=== PATIENT | female | born 1995 | race Two or more races ===

== ENCOUNTER 2021-10-03 22:14 | Inpatient (IN) | payer SELFPAY ==
[~2021-10-03] VITALS: Ht 154.9 cm; Wt 96.3 kg
[2021-10-03] MEDS ORDERED: LIDOCAINE 1% PF 30 ML VIAL. INJ PRN (22:45)
[2021-10-03] MEDS ORDERED: BUTORPHANOL 2 MG/ML VIAL. IVP PRN ×2 (22:45)
[2021-10-03] MEDS ORDERED: OXYTOCIN 30 UNIT/500 ML PREMIX 500 ML IV PRN ×2 (22:45)
[2021-10-03] MEDS ORDERED: ACETAMINOPHEN 325 MG TABLET. PO PRN (22:45)
[2021-10-03] MEDS ORDERED: IV RINGERS,LACTATED 1000ML 1,000 ML IV SCH (22:45)
[2021-10-03] MEDS ORDERED: IV RINGERS,LACTATED 1000ML 1,000 ML IV PRN (22:45)
[2021-10-03] MEDS ORDERED: TERBUTALINE 1 MG/ML VIAL. SQ PRN (22:45)
[2021-10-03] MEDS ORDERED: 0.9 % SODIUM CHLORIDE 10 ML DISP.SYRIN. IV PRN (22:45)
[2021-10-03 23:06] LABS: BASO % 0 % (0-3); EOS % 0 % (0-3); HEMOGLOBIN 12.1 g/dL (12.0-15.5); LYMPH # 2.5 x10^3/uL (1.0-4.8); LYMPH % 27 % (24-48); MEAN CORPUSCULAR HEMOGLOBIN 28 pg (25-35); MEAN CORPUSCULAR HGB CONC 34 g/dL (31-37); MEAN CORPUSCULAR VOLUME 83 fL (79-100); MONO # 0.8 x10^3/uL (0.0-1.1); MONO % 9 % (0-9); NEUT # 6.1 x10^3/uL (1.8-7.7); NEUT % 64 % (31-73); PLATELET COUNT 190 x10^3/uL (140-400); RED BLOOD COUNT 4.35 x10^6/uL (3.50-5.40); RED CELL DISTRIBUTION WIDTH 16.5 % (11.5-14.5); WHITE BLOOD COUNT 9.5 x10^3/uL (4.0-11.0)
[2021-10-03 23:14] LABS: BILIRUBIN,URINE NEGATIVE (NEG); CLARITY,URINE CLEAR; COLOR,URINE YELLOW; NITRITE,URINE NEGATIVE (NEG); PROTEIN,URINE NEGATIVE (NEG-TRACE)
[2021-10-03 23:20] LABS: BACTERIA,URINE 0 /HPF (0-FEW)
[2021-10-04] VITALS (7 sets, daily range): BP systolic 90–115; BP diastolic 43–72
[2021-10-04] MEDS ORDERED: ONDANSETRON PF 4 MG/2 ML VIAL. ONE (00:33)
[2021-10-04] MEDS ORDERED: ONDANSETRON PF 4 MG/2 ML VIAL. IVP PRN (00:45)
--- NOTE | 2021-10-04 01:17 | PDOC1 ---
GENERATION TECHNICIAN H&P Date of Admission: Date of Admission: Oct 03, 2021 at 22:14 History of Present Illness: EDC: 10/06/21 LMP: 12/30/20 26y @ 39.5 by LMP who present late last night with ctxs. The pt was found to be 4 cm on presentation. The pt had received no care during the . She states that [place], [place] and labs were obtained. PMH: Denies PSH: Denies Meds: None All: NKDA OBHx: TSVD x 1 SH: no tob, no EtOH FH: noncontributory Medications: Meds: Current Medications Medications (Trade) Dose Ordered Sig/Shonda Route PRN Reason Start Time Stop Time Status Last Admin Dose Admin Ringer's Solution 1,000 ml @ 125 mls/hr Q8H IV 10/03/21 22:45 10/04/21 00:41 Oxytocin 500 ml @ 0 mls/hr CONT PRN PRN IV Post delivery bleeding 10/03/21 22:45 10/04/21 00:42 Ondansetron HCl (Zofran) 4 mg PRN Q6HRS PRN IVP NAUSEA/VOMITING 1ST CHOICE 10/04/21 00:45 10/04/21 00:46 Allergies: Coded Allergies: No Known Drug Allergies (Unverified , 10/03/21) Physical Exam: PE: GENERAL: No apparent distress. Alert and oriented. HEENT: Head normocephalic, atraumatic. NECK: Supple LUNGS: Clear to auscultation. HEART: RRR, S1, S2 present, pulses intact ABDOMEN: Soft, positive bowel sounds. EXTREMITIES: No cyanosis or edema. NEUROLOGIC: Normal speech, normal tone PSYCHIATRIC: Normal affect, normal mood. SKIN: No ulceration. FHT: 120s +acels/no decels/mLTV [place]: 2-3 min SVE: 8/C/0 Labs: Laboratory Tests Test 10/03/21 22:45 White Blood Count 9.5 x10^3/uL (4.0-11.0) Red Blood Count 4.35 x10^6/uL (3.50-5.40) Hemoglobin 12.1 g/dL (12.0-15.5) Hematocrit 36.0 % (36.0-47.0) Mean Corpuscular Volume 83 fL (79-100) Mean Corpuscular Hemoglobin 28 pg (25-35) Mean Corpuscular Hemoglobin Concent 34 g/dL (31-37) Red Cell Distribution Width 16.5 % (11.5-14.5) H Platelet Count 190 x10^3/uL (140-400) Neutrophils (%) (Auto) 64 % (31-73) Lymphocytes (%) (Auto) 27 % (24-48) Monocytes (%) (Auto) 9 % (0-9) Eosinophils (%) (Auto) 0 % (0-3) Basophils (%) (Auto) 0 % (0-3) Neutrophils # (Auto) 6.1 x10^3/uL (1.8-7.7) Lymphocytes # (Auto) 2.5 x10^3/uL (1.0-4.8) Monocytes # (Auto) 0.8 x10^3/uL (0.0-1.1) Eosinophils # (Auto) 0.0 x10^3/uL (0.0-0.7) Basophils # (Auto) 0.0 x10^3/uL (0.0-0.2) Urine Collection Type Unknown Urine Color Yellow Urine Clarity Clear Urine pH 6.0 (<5.0-8.0) Urine Specific [place] 1.015 (1.000-1.030) Urine Protein Negative mg/dL (NEG-TRACE) Urine Glucose (UA) Negative mg/dL (NEG) Urine Ketones (Stick) Negative mg/dL (NEG) Urine Blood Small (NEG) Urine Nitrite Negative (NEG) Urine Bilirubin Negative (NEG) Urine Urobilinogen Dipstick 1.0 mg/dL (0.2 mg/dL) Urine Leukocyte Esterase Negative (NEG) Urine RBC 6-10 /HPF (0-2) Urine WBC 1-4 /HPF (0-4) Urine Squamous Epithelial Cells Many /LPF Urine Bacteria 0 /HPF (0-FEW) Urine Mucus Slight /LPF Laboratory Tests 10/03/21 22:45 Laboratory Tests 10/03/21 22:45 Assessment & Plan: A/P 26y @ 39.5 by LMP 1.) Active labor 2.) No care drop in labs obtained 3.) Fetus cat I FHT 4.) GBS unk no risk factors COATES,BRIT B MD Oct 04, 2021 01:17
--- NOTE | 2021-10-04 03:27 | PDOC4 ---
VAGINAL DELIVERY DATE DATE: 10/04/21 TIME: 03:26 TIME Pt found to be complete at around 0200. At that time pushing initiated. While pushing the pt was in prophylactic Anita position. When the baby began to crown, the head she began to crown, the head remained at the perineum even with pushing with the next 2 contractions. Once the head was delivered at 0307, the shoulders could not be delivered with the standard gentle traction. Additional traction was unable to alleviate the dystocia, so suprapubic pressure was applied. At that point the impacted anterior shoulder was reduced and the infant was able to be delivered. The patient delivered a viable female infant over intact perineum at 0308. Wt 9 lb 6 oz. Apgars 1/9. Placenta delivered spontaneously, intact with 3VC. 2nd degree lacerations repaired in nml fashion with 20 vicryl. Good hemostasis noted. 20 U of Pit given with IVF. EBL 300cc. Cord ABG pH 7.09 / BE -7 and Cord VBG pH 7.27 / BE -9. WEIGHT Weight [ ] BRIT COATES MD Oct 04, 2021 03:27
[2021-10-04] MEDS ORDERED: ACETAMINOPHEN 325 MG TABLET. PO PRN (03:30)
[2021-10-04] MEDS ORDERED: oxyCODONE/APAP 5/325 1 TAB TABLET PO PRN (03:30)
[2021-10-04] MEDS ORDERED: SIMETHICONE 80 MG TAB.CHEW PO PRN (03:30)
[2021-10-04] MEDS ORDERED: PHENYLEPH/MINERAL OIL/PETROLAT RECTAL OINTMENT TUBE. RC PRN (03:30)
[2021-10-04] MEDS ORDERED: BENZOCAINE 20% TOPICAL AEROSOL SPRAY 57GM CAN. TP PRN (03:30)
[2021-10-04] MEDS ORDERED: MAG HYDROX/ALUMINUM HYD/SIMETH 30 ML ORAL.SUSP PO PRN (03:30)
[2021-10-04] MEDS ORDERED: TDaP (Adacel) per PROTOCOL. MC PRN (03:30)
[2021-10-04] MEDS ORDERED: ZOLPIDEM 5 MG TABLET. PO PRN (03:30)
[2021-10-04] MEDS ORDERED: MAGNESIUM HYDROXIDE 2,400 MG/30 ML ORAL.SUSP. PO PRN (03:30)
[2021-10-04] MEDS ORDERED: diphenhydrAMINE HCL 25 MG CAPSULE PO PRN (03:30)
[2021-10-04] MEDS ORDERED: OXYTOCIN 30 UNIT/500 ML PREMIX 500 ML IV PRN (03:30)
[2021-10-04] MEDS ORDERED: DOCUSATE SODIUM 100 MG CAPSULE. PO PRN (03:30)
[2021-10-04] MEDS ORDERED: HYDROCORTISONE 1% TOPICAL OINTMENT 30GM TUBE. TP PRN (03:30)
[2021-10-04] MEDS ORDERED: MMR per PROTOCOL. MC PRN (03:30)
[2021-10-04] MEDS ORDERED: 0.9 % SODIUM CHLORIDE 10 ML DISP.SYRIN. IV PRN (03:30)
[2021-10-04] MEDS: IBUPROFEN 400 MG TABLET. PO PRN ×2 (06:09→15:01)
[2021-10-04] MEDS ORDERED: DIPH,PERTUSS(ACELL),TET VAC/PF 0.5 ML SYRINGE. VAX IM ONE (07:45)
[2021-10-04] MEDS ORDERED: FLU VACC QUAD 21-22 (6MOS+) PF 0.5 ML SYRINGE. VAX IM ONE (09:00)
[2021-10-04] MEDS ORDERED: PRENATAL MULTIVITAMIN TABLET. PO SCH (09:00)
[2021-10-05 06:11] VITALS: BP 114/63
[2021-10-05] MEDS: IBUPROFEN 400 MG TABLET. PO PRN (06:13)
[2021-10-05] MEDS ORDERED: FERROUS SULFATE 325 MG TABLET. PO SCH (08:00)
[2021-10-05 09:00] VITALS: BP 119/76
[2021-10-05 09:46] LABS: HEMATOCRIT 32.7 % (36.0-47.0); HEMOGLOBIN 10.5 g/dL (12.0-15.5); RED BLOOD COUNT 3.87 x10^6/uL (3.50-5.40); RED CELL DISTRIBUTION WIDTH 16.6 % (11.5-14.5); WHITE BLOOD COUNT 11.4 x10^3/uL (4.0-11.0)
[2021-10-05 10:44] VITALS: BP 119/76
[2021-10-05 11:00] VITALS: BP 102/65
--- NOTE | 2021-10-05 11:31 | PDOC ---
[facility] ANALYST PROGRESS NOTE Date of Service: DATE: 10/05/21 TIME: 11:30 Subjective: The pt with good pain control. Anthony PO. Voiding. Minimal lochia. Objective: Vital Signs: Vital Signs Date Time Temp Pulse Resp B/P (MAP) Pulse Ox O2 Delivery O2 Flow Rate FiO2 10/04/21 08:35 99.0 72 20 102/63 (76) Room Air 99.0 10/04/21 22:55 98 Vital Signs Date Time Temp Pulse Resp B/P (MAP) Pulse Ox O2 Delivery O2 Flow Rate FiO2 10/05/21 11:00 97.8 108 18 102/65 97.8 10/05/21 11:00 99 Room Air Labs: Laboratory Tests Test 10/05/21 08:20 White Blood Count 11.4 x10^3/uL (4.0-11.0) H Red Blood Count 3.87 x10^6/uL (3.50-5.40) Hemoglobin 10.5 g/dL (12.0-15.5) L Hematocrit 32.7 % (36.0-47.0) L Mean Corpuscular Volume 85 fL (79-100) Mean Corpuscular Hemoglobin 27 pg (25-35) Mean Corpuscular Hemoglobin Concent 32 g/dL (31-37) Red Cell Distribution Width 16.6 % (11.5-14.5) H Platelet Count 174 x10^3/uL (140-400) Laboratory Tests 10/05/21 08:20 Laboratory Tests 10/05/21 08:20 Physical Exam: GENERAL: No apparent distress. Alert and oriented. HEENT: Head normocephalic, atraumatic. NECK: Supple LUNGS: Clear to auscultation. HEART: RRR, S1, S2 present, pulses intact ABDOMEN: Soft, positive bowel sounds. EXTREMITIES: No cyanosis or edema. NEUROLOGIC: Normal speech, normal tone PSYCHIATRIC: Normal affect, normal mood. SKIN: No ulceration. FFNT below umb No C/C/E Assessment & Plan: A/P 26y PPD #1 s/p 1.) PP doing well 2.) No care drop in labs obtained (Rub and Jada) 3.) Rh neg s/p Rhogam 4.) Anemia Hgb 12.1 -> 10.5 5.) Flu and TDAP given 6.) D/C home BRIT COATES MD Oct 05, 2021 11:31
[2021-10-05] MEDS ORDERED: IBUP-1060 PO (11:36)
[2021-10-05] MEDS ORDERED: DOCU-109 PO (11:36)
[2021-10-05] MEDS ORDERED: FLU VACC QUAD 21-22 (6MOS+) PF 0.5 ML SYRINGE. VAX IM ONE (14:15)
--- NOTE | 2021-10-05 14:15 | DS ---
DATE OF DISCHARGE: 10/05/2021 ADMISSION DIAGNOSES: 1. Intrauterine at 39 weeks and 5 days by last menstrual period. 2. Active labor. 3. No care. 4. Group B Streptococcus unknown. DISCHARGE DIAGNOSES: 1. Intrauterine at 39 weeks and 5 days by last menstrual period. 2. Active labor. 3. No care. 4. Group B Streptococcus unknown. 5. Shoulder dystocia. PROCEDURE: Spontaneous vaginal delivery. BRIEF HOSPITAL COURSE: The patient is a 26-year-old 2, para 1-0-0-1, who presented to Labor and Delivery at 39 weeks and 5 days by LMP, who presented with contractions. On presentation, the patient was found to be 4 cm and progressed. The patient had received no care, but did [place] a doctor [facility] [place] where she said imaging and labs were obtained. None of those were available on admission. So, drop-in labs were obtained. The patient ultimately delivered by vaginal delivery complicated by shoulder dystocia. See delivery note for full detail. By day #1, the patient was meeting all discharge criteria and desired discharge home. Of note, the patient was found to be Rh negative, so she was given RhoGAM as well as given the vaccines of flu and Tdap prior to her release. On admission, her hemoglobin was found to be 12.1 and after delivery, was found to be 10.5. DISCHARGE INSTRUCTIONS: The patient was told not to lift anything greater than 20 pounds, have pelvic rest for 6 weeks. CALL IF: The patient was to call if she had fevers, chills, nausea, vomiting, abdominal pain or any additional questions or concerns. DISCHARGE MEDICATIONS: The patient was given a prescription for Motrin 800 mg, 30 pills; Colace 100 mg, 30 pills. FOLLOWUP APPOINTMENT: The patient was to follow up on 11/14 at 1:00 p.m. for her appointment. NORMA/MARISA DR: Sara TID: [id number]
[2021-10-05 14:30] VITALS: BP 100/65
== END 2021-10-05 15:30 | disposition home or self-care (01) | DRG 807 ==
LOC: OBSVTOIN 22:14 → 3 SO LND 22:14
PROVIDERS: ADMIT Obstetrics & Gynecology; ATTEND Obstetrics & Gynecology
PROC: 0KQM0ZZ Repair Perineum Muscle, Open Approach (ICD-10-PCS; principal; 2021-10-04)
PROC: 10E0XZZ Delivery of Products of Conception, External Approach (ICD-10-PCS; 2021-10-04)
PROC: 3E0234Z Introduction of Serum, Toxoid and Vaccine into Muscle, Percutaneous Approach (ICD-10-PCS; 2021-10-04)
DX: O66.0 Obstructed labor due to shoulder dystocia (principal); Z37.0 Single live birth; O26.893 Other specified pregnancy related conditions, third trimester; Z3A.39 39 weeks gestation of pregnancy; Z67.91 Unspecified blood type, Rh negative; O70.1 Second degree perineal laceration during delivery; O99.02 Anemia complicating childbirth; D64.9 Anemia, unspecified; Z20.822 Contact with and (suspected) exposure to COVID-19
CPT/HCPCS: 36415; 81001; 85025; 85027; 85461; 86592; 86703; 86762; 86850; 86900; 86901; 87340; 87426; 90471; 90686; 90715; 96372; J0595; J2405; J2590; J2790; J3490; J7120; U0003; U0005; G0378